=== PATIENT | male | born 1945 | race Caucasian/White ===

== ENCOUNTER 2018-01-25 11:27 | Emergency (ER) | payer OTHER ==
[~2018-01-25] VITALS: Ht 170.2 cm; Wt 93.0 kg
[~2018-01-25 11:27] MED LIST: ACEBUTCAFT; ALBU90OI6 INH; AMLO10; AMLO10 PO; AZIT250 PO; BACL10 PO; BACL20 PO; BACTRIM; Baclofen10 MG PO; CEPH500 PO; CLIN1TS; CLIN300 PO; CLON.1 PO; CLON.2 PO; CLOP75 PO; CODACEE120 PO; CRUTCH4 USE; CYCL10; CYCL10 PO; Cleocin HCl150 MG PO; DIAZ10 PO; DIAZ2 PO; DIAZ5 PO; DIPATR PO; ERYT250 PO; ERYT333ERA PO; FENT50TP TOP; FERR325 PO; GABA300 PO; GLIP10; GLIP10 PO; GLIP10ER PO; GLYCAS PR; GUAI600T33 PO; HYDACE25S PR; HYDACE5 PO; HYDMOR2 PO; HYDMOR4 PO; HYDRA25 PO; IBUP400; IBUP600; IBUP600 PO; IBUP800; INSLI100I; INSLI100I SC; INSLI75/25; INSLI75/25 SC; INSLI75/25 SUBQ; INSLIS75I SC; INSLIS75I SQ; INSU7030P; INSULANI SC; INSULANI SUBQ; INSULANPEN; INSULIN; INSULISPEN SC; KETO10 PO; LABE100 PO; LACT10SY PO; LEVFLO250 PO; LISHYD2012; LISI10; LORA.5 PO; LORA2 PO; LOVA20; LOVA40; MECL25 PO; MEPE50 PO; METF500; METF500 PO; METF500C PO; METO50ER; METO50ER PO; METO5A PO; MORP15ER PO; MORP30 PO; MORP30ER PO; MS Contin15 MG PO; Metformin HCl1000 MG PO; NAPR500 PO; NITR.4SL SL; NORT10 PO; Nitrostat0.4 MG SL; Norco 5-325 Ta1 EACH PO; OMEP20ER PO; ONDA4ODT MM; ONDA8 PO; ONDA8ODT MM; OXYC10TA19 PO; PENVK250SU PO; POTCHL20ER PO; PRAM.5 PO; PRED20 PO; PROACE100 PO; PROC10 PO; PRODEXEL PO; PROM25 PO; PROM25S PR; Pepcid40 MG PO; RANI150; RANI150 PO; RXCLIN PO; RXHYDACE PO; RXHYDMOR2 PO; RXLORA1 PO; RXONDA4ODT MM; RXPROM25 PO; RXTRAM50 PO; Robaxin-750750 MG PO; SIMV10 PO; SIMV40 PO; SIMV80 PO; SUCR1SU PO; SULTRIDS PO; TIZA4 PO; TRAM50 PO; TRAZ50 PO; TRIA50 PO; TRIHYD253A PO; TRIHYD253B; TRIHYD253B PO; UNIFINE PENTIP EAC MC; Ultram50 MG PO; Valium5 MG PO; Zithromax250 MG PO; Zofran Odt4 MG SL
[2018-01-25 13:35] LABS: BASOPHILS ABSOLUTE AUTO 0.05 K/mm3 (0.00-0.23); BASOPHILS PERCENT AUTO 1 % (0-2); EOSINOPHILS ABSOLUTE AUTO 0.21 K/mm3 (0.00-0.68); EOSINOPHILS PERCENT AUTO 3 % (0-6); Hematocrit 41.1 % (37.0-53.0); Hemoglobin 13.4 g/dL (13.5-17.5); IMMATURE GRAN ABSOLUTE AUTO 0.02 K/mm3 (0.00-0.10); IMMATURE GRAN PERCENT AUTO 0 % (0-1); LYMPHOCYTES ABSOLUTE AUTO 1.35 K/mm3 (0.84-5.20); LYMPHOCYTES PERCENT AUTO 17 % (21-46); MONOCYTES ABSOLUTE AUTO 0.48 K/mm3 (0.16-1.47); MONOCYTES PERCENT AUTO 6 % (4-13); Mean Corpuscular HGB 29.4 pg (26.0-34.0); Mean Corpuscular HGB Conc 32.6 g/dL (31.5-36.5); Mean Corpuscular Volume 90 fL (80-100); Mean Platelet Volume 10.5 fL (9.1-12.4); NEUTROPHILS ABSOLUTE AUTO 5.91 K/mm3 (1.96-9.15); NEUTROPHILS PERCENT AUTO 74 % (41-73); Platelet Count 210 K/mm3 (150-400); RDW Coefficient Variation 12.8 % (11.7-14.2); RDW Standard Deviation 42.1 fL (35.1-46.3); Red Blood Cell Count 4.56 M/mm3 (4.30-5.90); White Blood Cell Count 8.02 K/mm3 (4.00-11.30)
[2018-01-25 13:50] LABS: Alanine Aminotransfer (ALT/SGP 40 U/L (12-78); Albumin, Blood 3.7 g/dL (3.4-5.0); Albumin/Globulin Ratio 1.1 (0.8-1.8); Alk Phos 82 U/L (50-136); Anion Gap 8 mmol/L (6-16); Aspartate Aminotrans (AST/SGOT 33 U/L (12-37); Bilirubin, Total 0.7 mg/dL (0.1-1.0); Blood Urea Nitrogen 7 mg/dL (8-24); Bun/Creatinine Ratio 9.2 (12.0-20.0); CO2, Blood 26 mmol/L (21-32); Calcium, Blood 8.7 mg/dL (8.5-10.1); Chloride, Blood 107 mmol/L (98-108); Creatinine, Blood 0.76 mg/dL (0.60-1.20); Globulin, Blood 3.5 g/dL (2.2-4.0); Glomerular Filtration Rate >60 (60-); Glucose, Blood 154 mg/dL (70-99); Potassium, Blood 3.6 mmol/L (3.5-5.5); Sodium, Blood 141 mmol/L (136-145); Total Protein, Blood 7.2 g/dL (6.4-8.2); Troponin I <0.015 ng/mL (0.000-0.040)
== END 2018-01-25 14:58 | disposition left against medical advice (07) ==
LOC: ER 11:27
PROVIDERS: Emergency Medicine
DX: R07.9 Chest pain, unspecified (principal); I10 Essential (primary) hypertension; E11.9 Type 2 diabetes mellitus without complications; Z86.73 Personal history of transient ischemic attack (TIA), and cerebral infarction without residual deficits; Z87.891 Personal history of nicotine dependence; Z88.0 Allergy status to penicillin; Z88.5 Allergy status to narcotic agent; Z88.1 Allergy status to other antibiotic agents; Z88.2 Allergy status to sulfonamides; Z88.8 Allergy status to other drugs, medicaments and biological substances; Z79.4 Long term (current) use of insulin; Z79.899 Other long term (current) drug therapy
CPT/HCPCS: 36415; 71046; 80053; 83690; 84484; 85025; 93005; 93010; 99283

== ENCOUNTER 2018-07-10 09:46 | Emergency (ER) | payer OTHER ==
[~2018-07-10] VITALS: Ht 172.7 cm; Wt 96.2 kg
[2018-07-10 10:08] LABS: BASOPHILS ABSOLUTE AUTO 0.05 K/mm3 (0.00-0.23); BASOPHILS PERCENT AUTO 1 % (0-2); EOSINOPHILS ABSOLUTE AUTO 0.35 K/mm3 (0.00-0.68); EOSINOPHILS PERCENT AUTO 5 % (0-6); Hematocrit 44.8 % (37.0-53.0); Hemoglobin 15.2 g/dL (13.5-17.5); IMMATURE GRAN ABSOLUTE AUTO 0.01 K/mm3 (0.00-0.10); IMMATURE GRAN PERCENT AUTO 0 % (0-1); LYMPHOCYTES ABSOLUTE AUTO 1.35 K/mm3 (0.84-5.20); LYMPHOCYTES PERCENT AUTO 19 % (21-46); MONOCYTES ABSOLUTE AUTO 0.52 K/mm3 (0.16-1.47); MONOCYTES PERCENT AUTO 7 % (4-13); Mean Corpuscular HGB Conc 33.9 g/dL (31.5-36.5); Mean Corpuscular Volume 89 fL (80-100); Mean Platelet Volume 9.8 fL (9.1-12.4); NEUTROPHILS ABSOLUTE AUTO 5.03 K/mm3 (1.96-9.15); NEUTROPHILS PERCENT AUTO 69 % (41-73); Platelet Count 209 K/mm3 (150-400); RDW Coefficient Variation 13.1 % (11.7-14.2); RDW Standard Deviation 42.8 fL (35.1-46.3); Red Blood Cell Count 5.06 M/mm3 (4.30-5.90); White Blood Cell Count 7.31 K/mm3 (4.00-11.30)
[2018-07-10 10:35] LABS: Alanine Aminotransfer (ALT/SGP 47 U/L (12-78); Albumin, Blood 4.5 g/dL (3.4-5.0); Albumin/Globulin Ratio 1.1 (0.8-1.8); Alk Phos 83 U/L (50-136); Anion Gap 8 mmol/L (6-16); Aspartate Aminotrans (AST/SGOT 54 U/L (12-37); Bilirubin, Total 1.2 mg/dL (0.1-1.0); Blood Urea Nitrogen 14 mg/dL (8-24); Bun/Creatinine Ratio 14.2 (12.0-20.0); CO2, Blood 30 mmol/L (21-32); Calcium, Blood 9.4 mg/dL (8.5-10.1); Chloride, Blood 104 mmol/L (98-108); Creatinine, Blood 0.99 mg/dL (0.60-1.20); Globulin, Blood 4.1 g/dL (2.2-4.0); Glomerular Filtration Rate >60 (60-); Glucose, Blood 121 mg/dL (70-99); Potassium, Blood 3.6 mmol/L (3.5-5.5); Sodium, Blood 142 mmol/L (136-145); Total Protein, Blood 8.6 g/dL (6.4-8.2)
[2018-07-10] MEDS ORDERED: Zofran Odt4 MG SL (12:26)
== END 2018-07-10 12:41 | disposition home or self-care (01) ==
LOC: ER 09:46
PROVIDERS: Emergency Medicine
DX: K29.00 Acute gastritis without bleeding (principal); E11.9 Type 2 diabetes mellitus without complications; I10 Essential (primary) hypertension; Z88.8 Allergy status to other drugs, medicaments and biological substances; Z88.0 Allergy status to penicillin; Z88.6 Allergy status to analgesic agent; Z88.5 Allergy status to narcotic agent; Z88.2 Allergy status to sulfonamides; Z88.1 Allergy status to other antibiotic agents; Z79.899 Other long term (current) drug therapy; Z79.01 Long term (current) use of anticoagulants; Z79.4 Long term (current) use of insulin; Z86.73 Personal history of transient ischemic attack (TIA), and cerebral infarction without residual deficits; Z87.891 Personal history of nicotine dependence
CPT/HCPCS: 36415; 80053; 83690; 85025; 93005; 93010; 96361; 96374; 96375; 99284-25; C9113; J1100; J2405; J7030

== ENCOUNTER 2018-12-05 05:17 | Emergency (ER) | payer OTHER ==
[~2018-12-05] VITALS: Ht 172.7 cm; Wt 100.7 kg
[2018-12-05] MEDS ORDERED: ZOLP5 (05:33)
[2018-12-05] MEDS ORDERED: PANT20 (05:33)
[2018-12-05 05:45] LABS: Calcium, Ionized (POC) 1.12 mmol/L (1.10-1.46); Chloride (POC) 104 mmol/L (98-108); Creatinine (POC) 0.7 mg/dL (0.8-1.3); Glucose (ISTAT POC) 338 mg/dL (70-99); Hemoglobin (POC) 13.9 g/dL (13.5-17.5); Potassium (POC) 4.1 mmol/L (3.5-5.5); Sodium (POC) 140 mmol/L (135-148); Total CO2 (POC) 26 mmol/L (21-32)
[2018-12-05 05:49] LABS: Source, Urine Clean Catch
[2018-12-05 05:56] LABS: Bilirubin, Urine Neg (Neg); Blood, Urine Neg (Neg); Glucose Qualitative, Urine 4+ (Neg); Ketones, Urine Neg (Neg); Leukocyte Esterase, Urine Neg (Neg); Nitrite, Urine Neg (Neg); Protein, Urine 1+ (Neg); Specific Gravity, Urine 1.015 (1.003-1.022); Urobilinogen, Urine NORM (Normal)
[2018-12-05 05:59] LABS: Appearance, Urine Clear (Clear); Color, Urine Yellow (P-Yellow)
[2018-12-05] MEDS ORDERED: Pyridium100 MG PO (06:19)
== END 2018-12-05 06:37 | disposition home or self-care (01) ==
LOC: ER 05:17
PROVIDERS: Emergency Medicine
DX: R30.0 Dysuria (principal); E11.65 Type 2 diabetes mellitus with hyperglycemia; I10 Essential (primary) hypertension; Z88.8 Allergy status to other drugs, medicaments and biological substances; Z88.0 Allergy status to penicillin; Z88.6 Allergy status to analgesic agent; Z88.5 Allergy status to narcotic agent; Z88.2 Allergy status to sulfonamides; Z79.899 Other long term (current) drug therapy; Z79.02 Long term (current) use of antithrombotics/antiplatelets; Z79.4 Long term (current) use of insulin; Z86.73 Personal history of transient ischemic attack (TIA), and cerebral infarction without residual deficits; Z87.891 Personal history of nicotine dependence
CPT/HCPCS: 80047; 85014; 99283

== ENCOUNTER 2018-12-15 16:31 | Inpatient (IN) | payer OTHER ==
[~2018-12-15] VITALS: Ht 172.7 cm; Wt 95.2 kg
[~2018-12-15 16:31] MED LIST changes: +PANT20; +Pyridium100 MG PO; +ZOLP5
[2018-12-15] MEDS ORDERED: ZOLP10 PO (17:25)
[2018-12-15 18:16] LABS: BASOPHILS ABSOLUTE AUTO 0.07 K/mm3 (0.00-0.23); BASOPHILS PERCENT AUTO 0 % (0-2); EOSINOPHILS ABSOLUTE AUTO 0.01 K/mm3 (0.00-0.68); EOSINOPHILS PERCENT AUTO 0 % (0-6); Hematocrit 42.1 % (37.0-53.0); Hemoglobin 14.5 g/dL (13.5-17.5); IMMATURE GRAN PERCENT AUTO 8 % (0-1); LYMPHOCYTES ABSOLUTE AUTO 0.55 K/mm3 (0.84-5.20); LYMPHOCYTES PERCENT AUTO 3 % (21-46); MONOCYTES ABSOLUTE AUTO 1.23 K/mm3 (0.16-1.47); MONOCYTES PERCENT AUTO 6 % (4-13); Mean Corpuscular HGB 29.6 pg (26.0-34.0); Mean Corpuscular HGB Conc 34.4 g/dL (31.5-36.5); Mean Corpuscular Volume 86 fL (80-100); Mean Platelet Volume 10.4 fL (9.1-12.4); NEUTROPHILS ABSOLUTE AUTO 18.13 K/mm3 (1.96-9.15); NEUTROPHILS PERCENT AUTO 84 % (41-73); Platelet Count 176 K/mm3 (150-400); RDW Coefficient Variation 13.3 % (11.7-14.2); RDW Standard Deviation 41.4 fL (35.1-46.3); White Blood Cell Count 21.69 K/mm3 (4.00-11.30)
[2018-12-15 18:50] LABS: Alanine Aminotransfer (ALT/SGP 26 U/L (12-78); Albumin, Blood 3.5 g/dL (3.4-5.0); Albumin/Globulin Ratio 0.9 (0.8-1.8); Alk Phos 72 U/L (50-136); Anion Gap 12 mmol/L (6-16); Aspartate Aminotrans (AST/SGOT 15 U/L (12-37); Bilirubin, Total 1.3 mg/dL (0.1-1.0); Blood Urea Nitrogen 13 mg/dL (8-24); Bun/Creatinine Ratio 13.9 (12.0-20.0); CO2, Blood 24 mmol/L (21-32); Calcium, Blood 8.2 mg/dL (8.5-10.1); Chloride, Blood 99 mmol/L (98-108); Creatinine, Blood 0.93 mg/dL (0.60-1.20); Globulin, Blood 3.9 g/dL (2.2-4.0); Glomerular Filtration Rate >60 (60-); Glucose, Blood 300 mg/dL (70-99); Potassium, Blood 3.7 mmol/L (3.5-5.5); Sodium, Blood 135 mmol/L (136-145); Total Protein, Blood 7.4 g/dL (6.4-8.2)
[2018-12-15 18:51] LABS: Troponin I <0.015 ng/mL (0.000-0.040)
[2018-12-15 19:59] LABS: Influenza A Negative (NEGATIVE); Influenza B Negative (NEGATIVE)
[2018-12-15 20:32] LABS: Source, Urine Clean Catch
[2018-12-15 20:37] LABS: Bilirubin, Urine Neg (Neg); Blood, Urine 2+ (Neg); Glucose Qualitative, Urine 4+ (Neg); Ketones, Urine 3+ (Neg); Leukocyte Esterase, Urine Neg (Neg); Nitrite, Urine Neg (Neg); Protein, Urine 2+ (Neg); Urobilinogen, Urine NORM (Normal); pH, Urine 6.5 (5.0-8.0)
[2018-12-15 20:41] LABS: Appearance, Urine Clear (Clear); Color, Urine Yellow (P-Yellow)
[2018-12-15 20:44] LABS: Red Blood Cells, Urine 0-2 /hpf (0-2); White Blood Cells, Urine 0-2 /hpf (0-5)
[2018-12-15 20:45] LABS: Bacteria Not Seen /hpf; Squamous Epithelial Cells Rare /hpf (Few)
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
[2018-12-16] MEDS ORDERED: MORP30 PO (00:10)
--- NOTE | 2018-12-16 01:13 | NUR ---
PAIN MANAGEMENT - PROVIDER COMMUNICATION DR. COOPER NOTIFIED OF PT'S HOME REGIME FOR PAIN MANAGEMENT. NEW ORDERS RECEIVED. PT UPDATED AND AGREEABLE.
--- NOTE | 2018-12-16 01:48 | NUR ---
PAIN MANAGEMENT PT AWAKE, RESTLESS IN BED. OFFERED PT HOME PAIN MEDS, PT DECLINED STATING "I FEEL ALREADY TOO MEDICATED," FROM THE MEDS RECEIVED IN THE EMERGENCY ROOM. PT REPOSITIONED. DECLINES FURTHER NEEDS.
[2018-12-16 03:54] LABS: Hematocrit 41.2 % (37.0-53.0); Hemoglobin 13.7 g/dL (13.5-17.5); Mean Corpuscular HGB 29.3 pg (26.0-34.0); Mean Corpuscular HGB Conc 33.3 g/dL (31.5-36.5); Mean Corpuscular Volume 88 fL (80-100); Mean Platelet Volume 10.2 fL (9.1-12.4); Platelet Count 147 K/mm3 (150-400); RDW Coefficient Variation 13.4 % (11.7-14.2); RDW Standard Deviation 43.7 fL (35.1-46.3); Red Blood Cell Count 4.68 M/mm3 (4.30-5.90); White Blood Cell Count 17.31 K/mm3 (4.00-11.30)
[2018-12-16 04:14] LABS: Alanine Aminotransfer (ALT/SGP 22 U/L (12-78); Albumin/Globulin Ratio 0.9 (0.8-1.8); Alk Phos 63 U/L (50-136); Anion Gap 7 mmol/L (6-16); Aspartate Aminotrans (AST/SGOT 20 U/L (12-37); Blood Urea Nitrogen 14 mg/dL (8-24); Bun/Creatinine Ratio 15.9 (12.0-20.0); CO2, Blood 28 mmol/L (21-32); Calcium, Blood 7.9 mg/dL (8.5-10.1); Chloride, Blood 105 mmol/L (98-108); Creatinine, Blood 0.88 mg/dL (0.60-1.20); Globulin, Blood 3.5 g/dL (2.2-4.0); Glomerular Filtration Rate >60 (60-); Glucose, Blood 218 mg/dL (70-99); Potassium, Blood 3.6 mmol/L (3.5-5.5); Sodium, Blood 140 mmol/L (136-145); Total Protein, Blood 6.5 g/dL (6.4-8.2)
[2018-12-16 04:16] LABS: BAND PERCENT MAN 16 % (0-8); BASOPHILS PERCENT MAN 0 % (0-2); EOSINOPHILS PERCENT MAN 0 % (0-6); LYMPHOCYTES ABSOLUTE MAN 0.86 K/mm3 (0.84-5.20); LYMPHOCYTES PERCENT MAN 5 % (21-46); MONOCYTES ABSOLUTE MAN 0.51 K/mm3 (0.16-1.47); MONOCYTES PERCENT MAN 3 % (4-13); NEUTROPHILS ABSOLUTE MAN 15.92 K/mm3 (1.96-9.15); SEG NEUTROPHILS PERCENT MAN 76 % (41-73); TOTAL CELLS COUNTED 100
--- NOTE | 2018-12-16 07:28 | NUR ---
SUMMARY SINCE PREVIOUS NOTE, PT AROUSED ONCE AND REQUESTED TO USE THE TOILET. ATTEMPTED TO GET PATIENT UP TO TOILET AND PT BECAME ANXIOUS, INCREASINGLY SHAKEY, AND APPEARED SHORT OF BREATH, THOUGH HAD DIFFICULTY EXPRESSING NEEDS. DENIED PAIN, DENIED SHORTNESS OF BREATH, POINTED TO EPIGASTRIC LOCATION. PT SETTLED WITH REASSURANCE AND OFFERED BEDPAN AND URINAL. AFTER PT RELAXED, HE WAS ABLE TO STATE HE IS HAVING HIS CHRONIC BACK PAIN. MEDICATED PER HOME MED - MORPHINE IMMEDIATE RELEASE. PT SLEPT FOR AWHILE, BUT THEN AROUSED COMPLAINING OF ACID REFLUX. DR. COOPER CONTACTED FOR MALOX ORDER THIS WAS BENEFICIAL TO PATIENT IN EMERGENCY ROOM. PRIOR TO ADMINISTERING THIS, PT BEGAN VOMITING. MEDICATED PER EMAR. SINCE THEN, PT HAS SLEPT, AROUSING EASILY FOR REASSESSMENT AND DENYING NEEDS. VITALS STABLE.
--- NOTE | 2018-12-16 11:03 | NUR ---
Spoke with Dr. Roger at this time regarding the positive blood culture results. Plan is to repeat the blood cultures today. PT is currently receiving Levaquin, which the doctor says should cover the organism.
--- NOTE | 2018-12-16 18:19 | NUR ---
The pt is alert, oriented, appropriate and pleasant in conversation. He states that he still does not have an appetite. Frequently mentions that he is having epigastric discomfort. States that the pepcid and Maalox given together earlier today gave him quite a bit of relief, but 4 hours later he was again saying that the discomfort had returned. He was assisted up to a chair, as he hoped that it would give him relief, which it did. At 6 pm he again requested and received Maalox for relief. He did not have any clear liquids for dinner except for water, per his request. No nausea/vomiting, and no bowel movment today. Tremors of BUE throughout the day, more often than not, although occasionally noted a brief reprieve from the tremors. No other complaints.
--- NOTE | 2018-12-16 22:43 | NUR ---
5 STATED NEEDS HELP. APPEARED IN EXTEME PAIN; COULD NOT GET THE WORDS OUT TO EXPRESS WHAT HE WAS FEELING. 2149 SALES RECRUITER STARTED EKG. 2151 RETRIEVED NITRO FROM PYXIS 2153 GIVEN 1 DOSE OF NITRO; PAIN/PRESSURE/DISCOMFORT DID NOT DECREASE 2158 GIVEN ANOTHER DOSE OF NITRO; PT STATES PAIN/PRESSURE/DISCOMFORT SEEMS TO BE SUBSIDING. 2210 WHEN ASKED IF PAIN/PRESSURE/DISCOMFORT WAS STILL THERE STATED 9/10 PAIN; JUST BELOW THE CHEST. 2213 RE-CHECK BLOOD PRESSURE APPEARS WNL 2230 STATES PAIN STILL BETWEEN 7-8/10; GIVEN FENTANYL
--- NOTE | 2018-12-17 01:43 | NUR ---
0100 STATES HE CANNOT SLEEP; EVERYTIME HE GETS COMFORTABLE THE IV BEEPS BECAUSE HE HAS BENT HIS ARM. STATES HE WANTS AN NEW ONE PLACED. THIS RN EXPLAINED TO HIM THAT SHE WOULD NEED TO COME BACK IN A LITTLE BIT TO GIVE HIM A NEW ONE. PATIENT AGREEABLE. SPOKE TO CONTROL PANEL OPERATOR CRUDE UNIT. ABOUT THIS; MOVED IV FLUIDS FROM LAC TO R HAND; NO CHANGE; IV PUMP CONTINUED TO BEEP.
--- NOTE | 2018-12-17 01:49 | NUR ---
0105 STATES HE WANTS TO BE DISCONNECTED FROM ALL FLUIDS; DOES NOT UNDERSTAND WHAT THEY ARE FOR AND WHY HE NEEDS THEM. TRIED TO EXPLAIN REASONING; PATIENT EXTREMELY UPSET AT THAT TIME AND WOULD NOT LISTEN. STATED HE WANTED TO TALK TO THE MANAGER NUCLEAR AND THE DOCTOR. HE WANTS TO GO HOME. HASN'T BEEN ABLE TO SLEEP FOR 2 DAYS. REMOVED PATIENT FROM IV FLUIDS. EXPLAINED THAT THE MANAGER NUCLEAR WAS TIED UP BUT THAT I WOULD LET HER KNOW THAT HE WANTED TO TALK TO HER.
--- NOTE | 2018-12-17 01:52 | NUR ---
4756 STATED WANTED TO GET UP INTO THE CHAIR. ENCOURAGE PATIENT TO TRY TO GET SOME REST. AGREEABLE. RE-POSITIONED PATIENT IN BED
[2018-12-17 05:58] LABS: BASOPHILS ABSOLUTE AUTO 0.04 K/mm3 (0.00-0.23); BASOPHILS PERCENT AUTO 0 % (0-2); EOSINOPHILS ABSOLUTE AUTO 0.08 K/mm3 (0.00-0.68); EOSINOPHILS PERCENT AUTO 1 % (0-6); Hematocrit 38.1 % (37.0-53.0); Hemoglobin 12.7 g/dL (13.5-17.5); IMMATURE GRAN ABSOLUTE AUTO 0.09 K/mm3 (0.00-0.10); IMMATURE GRAN PERCENT AUTO 1 % (0-1); LYMPHOCYTES ABSOLUTE AUTO 1.21 K/mm3 (0.84-5.20); LYMPHOCYTES PERCENT AUTO 10 % (21-46); MONOCYTES ABSOLUTE AUTO 0.55 K/mm3 (0.16-1.47); MONOCYTES PERCENT AUTO 5 % (4-13); Mean Corpuscular HGB 28.8 pg (26.0-34.0); Mean Corpuscular HGB Conc 33.3 g/dL (31.5-36.5); Mean Corpuscular Volume 86 fL (80-100); Mean Platelet Volume 10.3 fL (9.1-12.4); NEUTROPHILS PERCENT AUTO 83 % (41-73); Platelet Count 166 K/mm3 (150-400); RDW Coefficient Variation 13.4 % (11.7-14.2); RDW Standard Deviation 42.1 fL (35.1-46.3); Red Blood Cell Count 4.41 M/mm3 (4.30-5.90); White Blood Cell Count 11.87 K/mm3 (4.00-11.30)
[2018-12-17 06:31] LABS: Alanine Aminotransfer (ALT/SGP 21 U/L (12-78); Albumin/Globulin Ratio 0.8 (0.8-1.8); Alk Phos 60 U/L (50-136); Anion Gap 8 mmol/L (6-16); Aspartate Aminotrans (AST/SGOT 23 U/L (12-37); Bilirubin, Total 0.5 mg/dL (0.1-1.0); Blood Urea Nitrogen 16 mg/dL (8-24); Bun/Creatinine Ratio 20.3 (12.0-20.0); CO2, Blood 24 mmol/L (21-32); CPK Creatine Kinase 266 U/L (39-308); Calcium, Blood 8.1 mg/dL (8.5-10.1); Chloride, Blood 107 mmol/L (98-108); Creatinine, Blood 0.79 mg/dL (0.60-1.20); Globulin, Blood 3.8 g/dL (2.2-4.0); Glomerular Filtration Rate >60 (60-); Glucose, Blood 182 mg/dL (70-99); Magnesium, Blood 2.1 mg/dL (1.6-2.4); Potassium, Blood 3.8 mmol/L (3.5-5.5); Sodium, Blood 139 mmol/L (136-145); Total Protein, Blood 6.8 g/dL (6.4-8.2); Troponin I <0.015 ng/mL (0.000-0.040); Uric Acid, Blood 4.7 mg/dL (3.5-7.2)
[2018-12-17 06:38] LABS: Phosphorus, Blood 0.7 mg/dL (2.5-4.9)
--- NOTE | 2018-12-17 07:27 | NUR ---
SHIFT SUMMARY A/O X3, ABLE TO MAKE NEEDS KNOWN. COOPERATIVE WITH CARE FOR THE MOST PART. STATED AT ONE POINT THAT HE WANTED TO GO AMA. DID NOT WANT TO BE HOOKED UP TO ANYMORE IV'S; STATED THAT EVERY TIME HE TRIED TO FALL ASLEEP THE IV PUMP WOULD START TO BEEP. STATED HAD NOT SLEPT FOR THE LAST 2 NIGHT AND FEELS OVER TIRED STATED THIS AROUND 0200. NEW IV PLACED TO L WRIST AND ALLOWED TO RESTART IV MEDICATIONS. VSS/AFEBRILE. STATED PAIN RANGING FROM 5-9/10; MEDICATED PER EMAR. BED IN LOWEST POSITION. CALL LIGHT IN REACH. CONTINUED TO MONITOR THROUGHOUT THE NIGHT. REPORT GIVEN TO ONCOMING RN.
--- NOTE | 2018-12-17 08:07 | NUR ---
pt highly anxious when entered room, he is quite concerned about neck pain and his tremors he states is not normal for him. very anxious about every thing that isn't right, gave him a bed bath and linen change as he was upset about a bit of blood on his gown, got him up to recliner but didn't want to stay long, as soon as bed was changed got back in. he took his po meds without diff, was unsteady on his feet and needs assistance, is impulsive and doesn't allow staff to fully explain before he is on to something else. he is back in bed, with call light in reach, does not want breakfast, but drank a bit of oj to take meds.
--- NOTE | 2018-12-17 12:59 | NUR ---
PT WAS RESTING COMFORTABLY EYES CLOSED BREATHING EVEN AND UNLABORED LIGHTS LOW WHEN RN LEFT FOR LUNCH.. AT 1215 RN CALLED BACK TO ROOM PT IS WANTING TO GO AMA. PT WAS STANDING IN ROOM. VERY SHAKY. LOUD VOICE EXPRESSING HE WANTED TO GO HOME RIGHT NOW. JAQUI DOWNEY CALLED AND UNABLE TO COME SEE PATIENT AT THIS TIME. OK FROM FOR PATIENT TO GO AMA HE IS OF SOUND MIND. THIS RN UNABLE TO PERSUADE PATIENT TO REMAIN IN CARE AT HOSPITAL. PT SIGNS AMA FORM AND JAQUI DOWNEY CALLS [facility] FOR PATIENT REQUEST. IV'S ARE DC'D BY KIKI SWANSON RN. PT IS ASSISTED IN DRESSING BY THIS RN. PT EXPRESSES MULTIPLE TIMES THAT HE IS NOT UNHAPPY WITH ANYONE JUST HAS NOT RESTED IN 3 DAYS AND FEELS THERE ARE TOO MANY PEOPLE IN THE HOSPITAL AND HE DOES NOT KNOW ANYONE HERE AND HE FEELS UNCOMFORTABLE. EXECUTIVE COORDINATOR CLARKE RN NOTIFIED AT 1237 AND CHARGE ANA HUITRON RN NOTIFIED AT 1230. PT LEAVES ROOM VIA WHEEL CHAIR AT 1238 AND IS OUT TO LOBBY TO WAIT FOR TAXI. PRIOR TO PATIENT LEAVING HE STATES THERE IS SOMEONE AT HOME TO HELP HIM GET INTO HOUSE WHEN HE GETS THERE AND HE ALSO STATES THAT HE HAS MONEY AND IS WILLING TO PAY FOR HIS TAXI RIDE HOME. PT SIGNS AMA FORM PRIOR TO LEAVING ICU UNIT.
== END 2018-12-17 12:30 | disposition left against medical advice (07) | DRG 871 ==
LOC: ER 16:31 → ICUW 21:47
PROVIDERS: Emergency Medicine; Hospitalist; Nurse Practitioner Acute Care; ADMIT Internal Medicine
DX: A41.9 Sepsis, unspecified organism (principal); R65.21 Severe sepsis with septic shock; J18.9 Pneumonia, unspecified organism; G93.1 Anoxic brain damage, not elsewhere classified; K21.9 Gastro-esophageal reflux disease without esophagitis; E11.9 Type 2 diabetes mellitus without complications; I10 Essential (primary) hypertension; E78.5 Hyperlipidemia, unspecified; G43.909 Migraine, unspecified, not intractable, without status migrainosus; G44.89 Other headache syndrome; G89.29 Other chronic pain; Z66 Do not resuscitate; Z79.4 Long term (current) use of insulin; Z86.73 Personal history of transient ischemic attack (TIA), and cerebral infarction without residual deficits; Z87.820 Personal history of traumatic brain injury; Z79.84 Long term (current) use of oral hypoglycemic drugs; Z79.02 Long term (current) use of antithrombotics/antiplatelets; Z79.899 Other long term (current) drug therapy; Z88.1 Allergy status to other antibiotic agents; Z88.5 Allergy status to narcotic agent; Z88.0 Allergy status to penicillin; Z88.2 Allergy status to sulfonamides; Z88.8 Allergy status to other drugs, medicaments and biological substances; Z87.891 Personal history of nicotine dependence
CPT/HCPCS: 36415; 71045; 71046; 72040; 73620; 74177; 80053; 81001; 82550; 82947; 83605; 83690; 83735; 84100; 84145; 84484; 84550; 85025; 85651; 86140; 87040; 87186; 87804; 93005; 93010; 96365-59; 96366; 96368; 96375; 99285-25; C9113; J1650; J1956; J2405; J2765; J3010; J7030; J7060; J7120; J7131; Q9967

== ENCOUNTER → 2019-01-22 | Outpatient (CLI) | payer OTHER ==
[~2019-01-22] MED LIST changes: +ZOLP10 PO
== END | disposition home or self-care (01) ==
LOC: LAB 09:34 → LAB SHORT 09:34 → LAB FUT 01-20 09:55
DX: A07.8 Other specified protozoal intestinal diseases (principal); R19.7 Diarrhea, unspecified
CPT/HCPCS: 84105

== ENCOUNTER 2019-02-22 06:33 | Emergency (ER) | payer OTHER ==
[~2019-02-22] VITALS: Ht 172.7 cm; Wt 88.0 kg
[2019-02-22 09:28] LABS: BASOPHILS ABSOLUTE AUTO 0.03 K/mm3 (0.00-0.23); BASOPHILS PERCENT AUTO 0 % (0-2); EOSINOPHILS ABSOLUTE AUTO 0.04 K/mm3 (0.00-0.68); EOSINOPHILS PERCENT AUTO 0 % (0-6); Hematocrit 42.8 % (37.0-53.0); Hemoglobin 14.4 g/dL (13.5-17.5); IMMATURE GRAN ABSOLUTE AUTO 0.05 K/mm3 (0.00-0.10); IMMATURE GRAN PERCENT AUTO 1 % (0-1); LYMPHOCYTES ABSOLUTE AUTO 0.84 K/mm3 (0.84-5.20); LYMPHOCYTES PERCENT AUTO 9 % (21-46); MONOCYTES ABSOLUTE AUTO 0.58 K/mm3 (0.16-1.47); MONOCYTES PERCENT AUTO 6 % (4-13); Mean Corpuscular HGB 29.6 pg (26.0-34.0); Mean Corpuscular HGB Conc 33.6 g/dL (31.5-36.5); Mean Corpuscular Volume 88 fL (80-100); Mean Platelet Volume 9.6 fL (9.1-12.4); NEUTROPHILS ABSOLUTE AUTO 7.95 K/mm3 (1.96-9.15); NEUTROPHILS PERCENT AUTO 84 % (41-73); Platelet Count 249 K/mm3 (150-400); RDW Coefficient Variation 14.6 % (11.7-14.2); RDW Standard Deviation 46.8 fL (35.1-46.3); Red Blood Cell Count 4.87 M/mm3 (4.30-5.90); White Blood Cell Count 9.49 K/mm3 (4.00-11.30)
[2019-02-22 09:54] LABS: International Normalized Ratio 0.99; Prothrombin Time Results 10.5 Sec (9.7-11.5)
[2019-02-22 11:49] LABS: Anion Gap 9 mmol/L (6-16); Blood Urea Nitrogen 16 mg/dL (8-24); CO2, Blood 28 mmol/L (21-32); Chloride, Blood 107 mmol/L (98-108); Glucose, Blood 61 mg/dL (70-99); Potassium, Blood 3.3 mmol/L (3.5-5.5); Sodium, Blood 144 mmol/L (136-145)
[2019-02-22 11:50] LABS: Alanine Aminotransfer (ALT/SGP 30 U/L (12-78); Albumin, Blood 4.5 g/dL (3.4-5.0); Albumin/Globulin Ratio 1.3 (0.8-1.8); Alk Phos 84 U/L (50-136); Aspartate Aminotrans (AST/SGOT 42 U/L (12-37); Bilirubin, Total 0.6 mg/dL (0.1-1.0); Calcium, Blood 9.2 mg/dL (8.5-10.1); Globulin, Blood 3.6 g/dL (2.2-4.0); Glomerular Filtration Rate >60 (60-); Magnesium, Blood 1.7 mg/dL (1.6-2.4); Total Protein, Blood 8.1 g/dL (6.4-8.2); Troponin I 0.023 ng/mL (0.000-0.040)
== END 2019-02-22 19:47 | disposition home or self-care (01) ==
LOC: ER 06:33
PROVIDERS: Emergency Medicine
DX: S22.079A Unspecified fracture of T9-T10 vertebra, initial encounter for closed fracture (principal); E11.9 Type 2 diabetes mellitus without complications; I10 Essential (primary) hypertension; G89.29 Other chronic pain; Z86.73 Personal history of transient ischemic attack (TIA), and cerebral infarction without residual deficits; Z87.891 Personal history of nicotine dependence; Z79.4 Long term (current) use of insulin; Z79.899 Other long term (current) drug therapy; W06.XXXA Fall from bed, initial encounter
CPT/HCPCS: 36415; 70450; 72070; 72128; 80053; 83735; 84484; 85025; 85610; 93005; 93010; J2270

== ENCOUNTER 2019-02-25 11:07 | Emergency (ER) | payer OTHER ==
[~2019-02-25] VITALS: Ht 172.7 cm; Wt 86.2 kg
[2019-02-25] MEDS ORDERED: ONDA4ODT MM (13:30)
== END 2019-02-25 13:40 | disposition home or self-care (01) ==
LOC: ER 11:07
DX: R11.2 Nausea with vomiting, unspecified (principal); E11.9 Type 2 diabetes mellitus without complications; I10 Essential (primary) hypertension; G43.909 Migraine, unspecified, not intractable, without status migrainosus; Z88.0 Allergy status to penicillin; Z88.5 Allergy status to narcotic agent; Z88.1 Allergy status to other antibiotic agents; Z88.2 Allergy status to sulfonamides; Z88.6 Allergy status to analgesic agent; Z88.8 Allergy status to other drugs, medicaments and biological substances; Z79.899 Other long term (current) drug therapy; Z79.4 Long term (current) use of insulin; Z87.891 Personal history of nicotine dependence
CPT/HCPCS: 82947; 99283

== ENCOUNTER → 2019-03-12 | Outpatient (CLI) | payer OTHER ==
[~2019-03-12] MED LIST changes: +Colace100 MG PO
[2019-03-12 11:55] LABS: BASOPHILS ABSOLUTE AUTO 0.04 K/mm3 (0.00-0.23); BASOPHILS PERCENT AUTO 0 % (0-2); EOSINOPHILS ABSOLUTE AUTO 0.01 K/mm3 (0.00-0.68); EOSINOPHILS PERCENT AUTO 0 % (0-6); Hematocrit 53.2 % (37.0-53.0); IMMATURE GRAN ABSOLUTE AUTO 0.05 K/mm3 (0.00-0.10); IMMATURE GRAN PERCENT AUTO 0 % (0-1); LYMPHOCYTES ABSOLUTE AUTO 0.84 K/mm3 (0.84-5.20); LYMPHOCYTES PERCENT AUTO 6 % (21-46); MONOCYTES ABSOLUTE AUTO 0.48 K/mm3 (0.16-1.47); MONOCYTES PERCENT AUTO 4 % (4-13); Mean Corpuscular HGB 30.3 pg (26.0-34.0); Mean Corpuscular HGB Conc 33.8 g/dL (31.5-36.5); Mean Corpuscular Volume 89 fL (80-100); Mean Platelet Volume 11.4 fL (9.1-12.4); NEUTROPHILS ABSOLUTE AUTO 11.75 K/mm3 (1.96-9.15); NEUTROPHILS PERCENT AUTO 89 % (41-73); Platelet Count 323 K/mm3 (150-400); RDW Coefficient Variation 14.6 % (11.7-14.2); RDW Standard Deviation 47.3 fL (35.1-46.3); Red Blood Cell Count 5.95 M/mm3 (4.30-5.90); White Blood Cell Count 13.17 K/mm3 (4.00-11.30)
[2019-03-12 12:04] LABS: Albumin, Blood 4.2 g/dL (3.4-5.0); Bilirubin, Total 1.1 mg/dL (0.1-1.0); Bun/Creatinine Ratio 20.3 (12.0-20.0); Calcium, Blood 10.1 mg/dL (8.5-10.1); Creatinine, Blood 1.58 mg/dL (0.60-1.20); Globulin, Blood 4.4 g/dL (2.2-4.0); Potassium, Blood 3.9 mmol/L (3.5-5.5); Total Protein, Blood 8.6 g/dL (6.4-8.2)
== END | disposition home or self-care (01) ==
LOC: LAB EV 11:51 → LAB SHORT 11:51
PROVIDERS: Family Medicine
DX: R11.2 Nausea with vomiting, unspecified (principal)
CPT/HCPCS: 80053; 83690; 85025

== ENCOUNTER 2019-03-13 09:49 | Emergency (ER) | payer OTHER ==
[~2019-03-13] VITALS: Ht 172.7 cm; Wt 72.6 kg
[2019-03-13 10:14] LABS: BASOPHILS ABSOLUTE AUTO 0.02 K/mm3 (0.00-0.23); BASOPHILS PERCENT AUTO 0 % (0-2); EOSINOPHILS ABSOLUTE AUTO 0.03 K/mm3 (0.00-0.68); EOSINOPHILS PERCENT AUTO 0 % (0-6); Hemoglobin 15.4 g/dL (13.5-17.5); IMMATURE GRAN ABSOLUTE AUTO 0.02 K/mm3 (0.00-0.10); IMMATURE GRAN PERCENT AUTO 0 % (0-1); LYMPHOCYTES ABSOLUTE AUTO 0.77 K/mm3 (0.84-5.20); LYMPHOCYTES PERCENT AUTO 9 % (21-46); MONOCYTES ABSOLUTE AUTO 0.35 K/mm3 (0.16-1.47); MONOCYTES PERCENT AUTO 4 % (4-13); Mean Corpuscular HGB 29.7 pg (26.0-34.0); Mean Corpuscular HGB Conc 32.8 g/dL (31.5-36.5); Mean Corpuscular Volume 91 fL (80-100); Mean Platelet Volume 11.1 fL (9.1-12.4); NEUTROPHILS ABSOLUTE AUTO 7.28 K/mm3 (1.96-9.15); NEUTROPHILS PERCENT AUTO 86 % (41-73); Platelet Count 242 K/mm3 (150-400); RDW Coefficient Variation 14.3 % (11.7-14.2); RDW Standard Deviation 48.3 fL (35.1-46.3); Red Blood Cell Count 5.18 M/mm3 (4.30-5.90); White Blood Cell Count 8.47 K/mm3 (4.00-11.30)
[2019-03-13 10:36] LABS: Alanine Aminotransfer (ALT/SGP 23 U/L (12-78); Albumin, Blood 3.6 g/dL (3.4-5.0); Albumin/Globulin Ratio 1.1 (0.8-1.8); Alk Phos 139 U/L (50-136); Anion Gap 8 mmol/L (6-16); Aspartate Aminotrans (AST/SGOT 14 U/L (12-37); Blood Urea Nitrogen 31 mg/dL (8-24); Bun/Creatinine Ratio 28.7 (12.0-20.0); CO2, Blood 28 mmol/L (21-32); Calcium, Blood 8.9 mg/dL (8.5-10.1); Chloride, Blood 114 mmol/L (98-108); Creatinine, Blood 1.08 mg/dL (0.60-1.20); Globulin, Blood 3.4 g/dL (2.2-4.0); Glomerular Filtration Rate >60 (60-); Glucose, Blood 477 mg/dL (70-99); Potassium, Blood 3.5 mmol/L (3.5-5.5); Sodium, Blood 150 mmol/L (136-145)
== END 2019-03-13 13:35 | disposition home or self-care (01) ==
LOC: ER 09:49
PROVIDERS: Emergency Medicine
DX: R07.9 Chest pain, unspecified (principal); R06.02 Shortness of breath; R53.1 Weakness; R63.4 Abnormal weight loss; E11.9 Type 2 diabetes mellitus without complications; G43.909 Migraine, unspecified, not intractable, without status migrainosus; I10 Essential (primary) hypertension; Z86.73 Personal history of transient ischemic attack (TIA), and cerebral infarction without residual deficits; Z87.891 Personal history of nicotine dependence; Z79.4 Long term (current) use of insulin; Z79.899 Other long term (current) drug therapy; Z88.0 Allergy status to penicillin; Z88.1 Allergy status to other antibiotic agents; Z88.5 Allergy status to narcotic agent; Z88.6 Allergy status to analgesic agent; Z88.8 Allergy status to other drugs, medicaments and biological substances
CPT/HCPCS: 36415; 71046; 80053; 83690; 84484; 85025; 93005; 93010; 96361; 96374; 99285-25; J2405; J7120

== ENCOUNTER 2019-03-27 12:25 | Emergency (ER) | payer OTHER ==
[~2019-03-27] VITALS: Ht 172.7 cm; Wt 78.0 kg
[~2019-03-27 12:25] MED LIST changes: -MS Contin15 MG PO; +Morphine Sulfat15 MG PO
[2019-03-27 13:03] LABS: BASOPHILS ABSOLUTE AUTO 0.03 K/mm3 (0.00-0.23); BASOPHILS PERCENT AUTO 0 % (0-2); EOSINOPHILS ABSOLUTE AUTO 0.12 K/mm3 (0.00-0.68); EOSINOPHILS PERCENT AUTO 1 % (0-6); Hematocrit 38.3 % (37.0-53.0); Hemoglobin 13.1 g/dL (13.5-17.5); IMMATURE GRAN ABSOLUTE AUTO 0.03 K/mm3 (0.00-0.10); IMMATURE GRAN PERCENT AUTO 0 % (0-1); LYMPHOCYTES ABSOLUTE AUTO 0.94 K/mm3 (0.84-5.20); LYMPHOCYTES PERCENT AUTO 11 % (21-46); MONOCYTES ABSOLUTE AUTO 0.41 K/mm3 (0.16-1.47); MONOCYTES PERCENT AUTO 5 % (4-13); Mean Corpuscular HGB Conc 34.2 g/dL (31.5-36.5); Mean Corpuscular Volume 88 fL (80-100); Mean Platelet Volume 10.2 fL (9.1-12.4); NEUTROPHILS ABSOLUTE AUTO 6.86 K/mm3 (1.96-9.15); NEUTROPHILS PERCENT AUTO 82 % (41-73); Platelet Count 238 K/mm3 (150-400); RDW Coefficient Variation 13.7 % (11.7-14.2); RDW Standard Deviation 44.2 fL (35.1-46.3); Red Blood Cell Count 4.37 M/mm3 (4.30-5.90); White Blood Cell Count 8.39 K/mm3 (4.00-11.30)
[2019-03-27 13:19] LABS: Alanine Aminotransfer (ALT/SGP 21 U/L (12-78); Albumin/Globulin Ratio 0.9 (0.8-1.8); Alk Phos 83 U/L (50-136); Anion Gap 11 mmol/L (6-16); Aspartate Aminotrans (AST/SGOT 23 U/L (12-37); Bilirubin, Total 0.7 mg/dL (0.1-1.0); Blood Urea Nitrogen 16 mg/dL (8-24); Bun/Creatinine Ratio 15.5 (12.0-20.0); CO2, Blood 27 mmol/L (21-32); Calcium, Blood 8.3 mg/dL (8.5-10.1); Chloride, Blood 98 mmol/L (98-108); Creatinine, Blood 1.03 mg/dL (0.60-1.20); Globulin, Blood 3.3 g/dL (2.2-4.0); Glomerular Filtration Rate >60 (60-); Glucose, Blood 158 mg/dL (70-99); Potassium, Blood 3.5 mmol/L (3.5-5.5); Sodium, Blood 136 mmol/L (136-145); Total Protein, Blood 6.3 g/dL (6.4-8.2)
[2019-03-27] MEDS ORDERED: PANT40 PO (14:26)
[2019-03-27] MEDS ORDERED: IBUP600 PO (14:26)
[2019-03-27] MEDS ORDERED: Pepcid40 MG PO (14:59)
== END 2019-03-27 15:41 | disposition home or self-care (01) ==
LOC: ER 12:25
PROVIDERS: Emergency Medicine
DX: R10.13 Epigastric pain (principal); G89.29 Other chronic pain; E11.9 Type 2 diabetes mellitus without complications; I10 Essential (primary) hypertension; Z86.73 Personal history of transient ischemic attack (TIA), and cerebral infarction without residual deficits; Z87.891 Personal history of nicotine dependence; Z88.0 Allergy status to penicillin; Z88.6 Allergy status to analgesic agent; Z88.5 Allergy status to narcotic agent; Z88.1 Allergy status to other antibiotic agents; Z88.8 Allergy status to other drugs, medicaments and biological substances; Z79.4 Long term (current) use of insulin; Z79.899 Other long term (current) drug therapy
CPT/HCPCS: 36415; 80053; 83690; 85025; 96374; 96375; 99283-25; C9113; J0780

== ENCOUNTER 2019-04-08 12:56 | Day surgery (SDC) | payer OTHER ==
[~2019-04-08] VITALS: Ht 172.7 cm; Wt 69.4 kg
[~2019-04-08 12:56] MED LIST changes: +PANT40 PO
--- NOTE | 2019-04-08 15:01 | NUR ---
04/08/19 1501 Nellie Weldon SAT PATIENT UP IN [facility], PATIENT VERY DIZZY, COUGHING, AND NAUSEATED. RN GAVE PATIENT JOHN MIST TO HELP WITH NAUSEA, IV ALREADY DC'D. PATIENT STATES THAT DIZZINESS HAS BEEN AN ONGOING ISSUE AND THAT IT IS NOT WORSE THAN NORMAL. VSS. WILL CONTINUE TO MONITOR PATIENT.
== END 2019-04-08 15:59 | disposition home or self-care (01) ==
LOC: ORSCSDS 12:56
PROVIDERS: Internal Medicine Gastroenterology
PROC: 0DB68ZX Excision of Stomach, Via Natural or Artificial Opening Endoscopic, Diagnostic (ICD-10-PCS; principal; 2019-04-08 14:15)
DX: R10.13 Epigastric pain (principal); R63.4 Abnormal weight loss; K29.80 Duodenitis without bleeding; K20.9 Esophagitis, unspecified; K29.70 Gastritis, unspecified, without bleeding; K31.9 Disease of stomach and duodenum, unspecified; R19.7 Diarrhea, unspecified; E11.9 Type 2 diabetes mellitus without complications; I10 Essential (primary) hypertension; E78.5 Hyperlipidemia, unspecified; Z87.891 Personal history of nicotine dependence; Z79.4 Long term (current) use of insulin; Z79.899 Other long term (current) drug therapy
CPT/HCPCS: 82947; 88305; 88342; J2704; J7120